=== PATIENT | female | born 1950 | race Caucasian/White ===

== ENCOUNTER → 2018-01-08 | Outpatient (CLI) | payer MEDICARE, OTHER ==
[~2018-01-08] MED LIST: ATOR40TA PO; Aspir-Trin325 MG PO; CARV6.25 PO; CHOL10002 PO; CLIN300 PO; CLOP75 PO; CRANBERRY250 MG PO; Co Q-1010 MG PO; DIGESTIVE ENZY1 EACH; Fish Oil300 MG PO; GRAPE SEED; LOSA25 PO; MULTI VITAMIN1 EACH PO; [UNRECOGNIZED DRUG - OTHER]; [UNRECOGNIZED DRUG - OTHER] PO
== END | disposition home or self-care (01) ==
LOC: LAB SHORT 11:40 → LAB EV 11:40
DX: L08.9 Local infection of the skin and subcutaneous tissue, unspecified (principal)
CPT/HCPCS: 87070; 87205

== ENCOUNTER 2018-01-09 07:43 | Emergency (ER) | payer MEDICARE, OTHER ==
[~2018-01-09] VITALS: Ht 154.9 cm; Wt 72.6 kg
[~2018-01-09 07:43] MED LIST changes: -CLIN300 PO
[2018-01-09] MEDS ORDERED: LOSA25 PO (08:00)
[2018-01-09] MEDS ORDERED: CLIN300 PO (08:01)
== END 2018-01-09 09:08 | disposition home or self-care (01) ==
LOC: ER 07:43
DX: L03.211 Cellulitis of face (principal); L02.01 Cutaneous abscess of face; I25.2 Old myocardial infarction; I10 Essential (primary) hypertension; Z79.899 Other long term (current) drug therapy; Z79.82 Long term (current) use of aspirin
CPT/HCPCS: 36415; 96365; 99283

== ENCOUNTER 2025-02-22 13:45 | Emergency (ER) | payer MEDICARE, OTHER ==
[~2025-02-22] VITALS: Ht 157.5 cm; Wt 77.1 kg
[~2025-02-22 13:45] MED LIST changes: +CLIN300 PO
[2025-02-22 15:01] LABS: Alanine Aminotransfer (ALT/SGP 13.0 U/L (12-78); Albumin, Blood 2.1 g/dL (3.4-5.0); Albumin/Globulin Ratio 0.4 (0.8-1.8); Anion Gap 8.0 mmol/L (3-11); Aspartate Aminotrans (AST/SGOT 13.0 U/L (12-37); Bilirubin, Total 0.4 mg/dL (0.1-1.0); Blood Urea Nitrogen 11.0 mg/dL (8-24); CO2, Blood 28.0 mmol/L (21-32); Calcium, Blood 8.5 mg/dL (8.5-10.1); Chloride, Blood 105.0 mmol/L (98-108); Creatinine, Blood 0.78 mg/dL (0.40-1.00); Globulin, Blood 5.6 g/dL (2.2-4.0); Glucose, Blood 89.0 mg/dL (70-99); Potassium, Blood 2.3 mmol/L (3.5-5.5); Sodium, Blood 139.0 mmol/L (136-145); Total Protein, Blood 7.7 g/dL (6.4-8.2)
[2025-02-22] MEDS ORDERED: Potassium Acetate 20 MEQ in NS 100 ML IV SCH (15:20)
[2025-02-22] MEDS ORDERED: NS 1,000 ML IV ONE (16:05)
[2025-02-22] MEDS ORDERED: Potassium2 MEQ/1 M4 PO (16:42)
[2025-02-22 20:38] VITALS: BP 173/79
== END 2025-02-22 21:13 | disposition home or self-care (01) ==
LOC: ER 13:45
PROVIDERS: Emergency Medicine
DX: E87.6 Hypokalemia (principal); I10 Essential (primary) hypertension; C10.9 Malignant neoplasm of oropharynx, unspecified; Z88.8 Allergy status to other drugs, medicaments and biological substances; Z79.82 Long term (current) use of aspirin; Z79.899 Other long term (current) drug therapy; Z95.5 Presence of coronary angioplasty implant and graft; E11.9 Type 2 diabetes mellitus without complications; E78.2 Mixed hyperlipidemia; E55.9 Vitamin D deficiency, unspecified; E56.8 Deficiency of other vitamins
CPT/HCPCS: 36415; 80053; 80061; 82306; 83036; 84443; 85025; 93005; 93010; 99284-25; A9270; J3480; J7030; J7050